=== PATIENT | female | born 1990 | race Caucasian/White ===

== ENCOUNTER 2018-02-26 19:17 | Emergency (ER) | payer SELFPAY ==
[~2018-02-26 19:17] MED LIST: ALB18R INH; CEPH-13 PO; FLUT1DIS28 IH; HYDR-4309 PO; PROM-110 PO; SULF-198 PO
[2018-02-26 19:26] VITALS: BP 134/95
--- NOTE | 2018-02-26 19:32 | ER Report ---
History and Physical Time Seen By MD: 19:31 Hx. of Stated Complaint: patient has been dealing with chronic infection in her left 4th toe since august, patient states it started to get better, but then patient states it has been getting worse, she is having a lot of pain, drainage from toe. HPI/ROS CHIEF COMPLAINT: Open wound, left 4th toe HISTORY OF PRESENT ILLNESS: 28-year-old female presents with a nonhealing wound on her left 4th 2nd toe for several months. She states she suffered a massive pulmonary embolism and had have emergent cardiac surgery to remove the thrombus. She had necrosis of multiple toe tips. All of the toes of healed except for the left 4th toe with there is a persistent sore on the distal tip 1st 3 or 4 months. She's been trying soaking. Band-Aids with antibiotic ointment. She is concerned wound may be infected. Allergies: Coded Allergies: No Known Drug Allergies (Unverified , 02/26/18) Home Meds Active Scripts Cephalexin 500 Mg Tab (KEFLEX 500 MG TAB) 500 Mg Tablet, 500 MG PO TID for infection, #28 TAB Prov:THUAN SADLER DO 02/26/18 Reported Medications Propranolol Hcl (PROPRANOLOL HCL) 10 Mg Tablet, 10 MG PO PRN Y for ANXIETY 02/26/18 Bupropion Hcl (WELLBUTRIN SR) 100 Mg Tablet.er, 100 MG PO PRN Y for ANXIETY, TAB 02/26/18 Warfarin Sodium (WARFARIN SODIUM) 1 Mg Tablet, 1 MG PO tue,thur,sat, sun, TAB 02/26/18 Warfarin Sodium (WARFARIN SODIUM) 5 Mg Tablet, 2 MG PO m,w,f, TAB 02/26/18 Fluticasone/Salmeterol (ADVAIR 250-50 DISKUS) 1 Each Disk.w.dev, 1 EACH IH PRN Y for WHEEZING 11/03/15 Albuterol Sulfate (VENTOLIN HFA) 18 Gm Inh, 1-2 PUFF INH 3-4XD, INH 11/03/15 Discontinued Scripts Cephalexin (KEFLEX) 500 Mg Capsule, 500 MG PO TID, #30 CAP TAKE ONE CAPSULE BY MOUTH three times a day. Prov:TONI CARNEY FISH AGENT 02/17/16 Sulfamethoxazole/Trimet 800-160 Mg Tab (BACTRIM DS TABLET) 1 Each Tablet, 2 TAB PO Q12H, #40 TAB 2 tablets twice a day for 10 days Prov:TONI CARNEY FISH AGENT 02/17/16 Reviewed Nurses Notes: Yes Old Medical Records Reviewed: Yes Hx Smoking: Yes Smoking Status: Current: Every Day Smoker Exposure to Second Hand Smoke?: Yes Hx Substance Use Disorder: No Hx Alcohol Use: No Constitutional Vital Sign - Last 24 Hours 02/26/18 02/26/18 02/26/18 02/26/18 19:26 19:32 19:47 20:02 Temp 97.8 Pulse 99 96 98 93 Resp 20 B/P (MAP) 134/95 Pulse Ox 99 98 96 96 O2 Delivery Room Air Physical Exam General appearance: Alert no distress. Respiratory: Chest is non tender, lungs are clear to auscultation. Cardiac: Regular rate and rhythm Extremities: Examination of the left foot reveals a neurovascularly intact foot. The left 4th toe shows mild erythema. There is a sharp the end of the toe approximately 4-5 mm in diameter on the very distal tip. DIFFERENTIAL DIAGNOSIS: After history and physical exam differential diagnosis was considered for cellulitis, osteomyelitis, nonhealing wound, stasis ulcer Medical Decision Making ED Course/Re-evaluation ED Course Patient was admitted to the examination room. H&P was done. The differential diagnosis was considered. On clinical examination. Patient has a nonhealing wound on her left 4th 2nd toe. It appears to be mildly infected with cellulitis. Should be covered with Keflex 500 mg 3 times daily. She is advised to follow-up for chronic wound care with Dr. Frankel. or Dr Valenzuela Decision to Disposition Date: Feb 26, 2018 Decision to Disposition Time: 20:01 Depart Departure Latest Vital Signs Vital Signs Date Time Temp Pulse Resp B/P (MAP) Pulse Ox O2 Delivery O2 Flow Rate FiO2 02/26/18 20:02 93 96 02/26/18 19:26 97.8 20 134/95 Room Air Impression: Primary Impression: Cellulitis of fourth toe, left Condition: Improved Disposition: HOME OR SELF-CARE Referrals: JORGE FRANKEL MD New Scripts Cephalexin 500 Mg Tab (KEFLEX 500 MG TAB) 500 Mg Tablet 500 MG PO TID for infection, #28 TAB Prov: THUAN SADLER DO 02/26/18 Patient Instructions: Cellulitis (ED) Additional Instructions: Follow-up with general surgery Dr Frankel for evaluation and chronic wound management THUAN SADLER DO Feb 26, 2018 19:32
[2018-02-26] MEDS ORDERED: BUPR-133 PO (19:36)
[2018-02-26] MEDS ORDERED: WARF1TAB15 PO (19:36)
[2018-02-26] MEDS ORDERED: WARF5TAB23 PO (19:36)
[2018-02-26] MEDS ORDERED: PROP10TA58 PO (19:36)
[2018-02-26] MEDS ORDERED: CEPH500T7 PO (20:03)
== END 2018-02-26 20:12 | disposition home or self-care (01) ==
LOC: ER 19:41
DX: L03.032 Cellulitis of left toe (principal)
CPT/HCPCS: 99282